=== PATIENT | male | born 1940 | race Caucasian/White ===

== ENCOUNTER 2016-11-01 09:00 | Emergency (ER) | payer MEDICARE, OTHER ==
[~2016-11-01] VITALS: Ht 185.4 cm; Wt 94.3 kg
--- NOTE | 2016-11-01 09:48 | ED.ADGEN ---
Adult General Chief Complaint Chief Complaint: MECHANICAL FALL HPI HPI Patient is a 76 year old man, with a history of atrial flutter, on Pradaxa, who presents to the emergency department with complaints of right-sided shoulder pain right knee pain, contusion to the right side of his head after a fall yesterday. Patient states that he tripped on a curb while exiting a restaurant. Denies any loss of consciousness, any weakness, numbness, tingling, neck pain, vision changes. Complaining of soreness and swelling in his right islam, also of soreness and swelling in the right knee, and pain in the right chest and right shoulder, but is worsened with deep inspiration. Denies any shortness of breath, any nausea or vomiting, any bleeding, any pain with urination, any back pain, any abdominal pain, any other injuries. He states that he used his daily Celebrex yesterday along with acetaminophen, last dose of medication was around 10:00 last night. Review of Systems Review of Systems Constitutional: Denies fever or chills. [] Eyes: Denies change in visual acuity. [] HENT: Denies nasal congestion or sore throat. [] Respiratory: Denies cough or shortness of breath. [] Cardiovascular: Right-sided rib and chest pain with deep inspiration, no edema. GI: Denies abdominal pain, nausea, vomiting, bloody stools or diarrhea. [] : Denies dysuria. [] Musculoskeletal: Right-sided rib and shoulder pain, worse with deep inspiration with motion, right knee pain. Integument: Denies rash. [] Neurologic: Denies headache, focal weakness or sensory changes. [] Endocrine: Denies polyuria or polydipsia. [] Lymphatic: Denies swollen glands. [] Psychiatric: Denies depression or anxiety. [] Current Medications Current Medications Current Medications Medications (Trade) Dose Ordered Sig/Maria Del Rosario Start Time Stop Time Status Last Admin Dose Admin Cyclobenzaprine HCl (Flexeril) 5 mg 1X ONCE 11/01/16 11:15 11/01/16 11:16 DC Lidocaine (Lidoderm) 1 patch 1X ONCE 11/01/16 11:15 11/01/16 11:16 DC 11/01/16 11:01 1 PATCH Allergies Allergies Allergies Coded Allergies Type Severity Reaction Last Updated Verified No Known Drug Allergies 7/22/17 No Physical Exam Physical Exam Constitutional: Well developed, well nourished, no acute distress, non-toxic appearance. [] HENT: Normocephalic, atraumatic, bilateral external ears normal, oropharynx moist, no oral exudates, nose normal. [] Eyes: PERRLA, EOMI, conjunctiva normal, no discharge. [] Neck: Normal range of motion, no tenderness, supple, no stridor. [] Cardiovascular:Heart rate regular rhythm, no murmur, S1, S2, rubs or gallops. [] Lungs & Thorax: Bilateral breath sounds clear to auscultation, no wheezing, rhonchi, rales. Patient with mild initial patient on the chest wall in the right , in the rib 5 rib 7, but no crepitus, no bony point tenderness identified, patient states the pain is more with inspiration than with my palpation. [] Abdomen: Bowel sounds normal, soft, no tenderness, no rebound, rigidity, no guarding, no masses, no pulsatile masses. [] Skin: Warm, dry, no erythema, no rash. [] Back: No midline or paraspinal tenderness, no CVA tenderness. [] Extremities: Patient with tenderness all patient across the anterior portion of the humerus, although he has full range of motion, states he has most pain with elevation in full extension. Patient noted to have abrasions on bilateral knees , with an area of ecchymosis distal to the left patella, across the left anterior portion of the tibia, patient with well-healed surgical incision, with full range of motion, with some crepitus, status post total knee arthroplasty, no cyanosis, no clubbing, ROM intact, no edema. [] Neurologic: Alert and oriented X 3, normal motor function, normal sensory function, no focal deficits noted. [] Psychologic: Affect normal, judgement normal, mood normal. [] Current Patient Data Vital Signs Vital Signs Date Time Temp Pulse Resp B/P (MAP) Pulse Ox O2 Delivery O2 Flow Rate FiO2 11/01/16 09:20 98.3 77 18 155/78 (103) 99 Room Air 98.3 EKG EKG Not indicated [] Radiology/Procedures Radiology/Procedures [][facility] [address] [place] [address] IMAGING REPORT Signed PATIENT: JAKOB KEARNS ACCOUNT: [id number] : 1940 LOCATION: ER AGE: 76 SEX: M EXAM STATUS: PRE ER ORD. PHYSICIAN: PAUL DIAZ DO REASON: fall on Pradaxa/closed head injury PROCEDURE: CT HEAD AND CERVICAL SPINE WO Indication fall. Closed head injury. Neck pain. Noncontrast images of the head were obtained. Images of the cervical spine were reformatted in the coronal and sagittal planes. No prior imaging of the head is available. CT head: Findings. The calvarium appears unremarkable. The visualized paranasal sinuses appear unremarkable. There is no subdural or epidural hematoma. There is no mass or midline shift. No acute intracranial finding is not seen. CT cervical spine: Findings. The lung apices are clear. A significant soft tissue finding is not seen. Review of axial images demonstrates some degenerative changes. These are best demonstrated on the sagittal reformatted images. There is slight disc space narrowing at C6-7. An acute finding is not seen on the axial or reformatted images. IMPRESSION: Mild spondylitic changes in the cervical spine. No acute finding seen. No acute intracranial findings PQRS Compliance Statement: One or more of the following individualized dose reduction techniques were utilized for this examination: 1. Automated exposure control 2. Adjustment of the mA and/or kV according to patient size 3. Use of iterative reconstruction technique DICTATED and SIGNED BY: LIZETH BARKER MD DATE: 11/01/16953 CC: NOAH TEJADA; PAUL DIAZ DO ~ [facility] [address] [place] [address] IMAGING REPORT Signed PATIENT: JAKOB KEARNS ACCOUNT: [id number] : 1940 LOCATION: ER AGE: 76 SEX: M EXAM STATUS: REG ER ORD. PHYSICIAN: PAUL DIAZ DO REASON: fall/pain PROCEDURE: KNEE LEFT 4V Indication fall one day earlier. Pain. AP oblique and lateral views of the left knee were obtained as well as a sunrise view. There is a total knee replacement. No fracture or acute bony finding is seen. Some soft tissue calcification above the patella is noted. IMPRESSION: No acute bony finding DICTATED and SIGNED BY: LIZETH BARKER MD DATE: 11/01/16 1049 CC: NOAH TEJADA; PAUL DIAZ DO ~ [place] [address] IMAGING REPORT Signed PATIENT: JAKOB KEARNS ACCOUNT: [id number] : 1940 LOCATION: ER AGE: 76 SEX: M EXAM STATUS: REG ER ORD. PHYSICIAN: PAUL DIAZ DO REASON: fall/pain PROCEDURE: RIBS RIGHT AND PA CHEST Indication traumatic right rib pain associated with a fall. A single view of the chest was obtained as well as films targeted to right ribs. The chest is compared to an examination 01/13/2013. The heart and pulmonary vessels appear normal. The lungs are clear. There is no pleural fluid or pneumothorax. An acute finding in the chest is not seen. A significant change compared to the prior exam is not seen. Films targeted to right ribs appear unremarkable. IMPRESSION: No acute finding seen in the chest. Unremarkable plain films of right ribs DICTATED and SIGNED BY: LIZETH BARKER MD DATE: 11/01/16 1111 CC: NOAH TEJADA; PAUL DIAZ DO ~ Impressions: [place] [id number] IMAGING REPORT Signed PATIENT: JAKOB KEARNS ACCOUNT: [id number] : 1940 LOCATION: ER AGE: 76 SEX: M EXAM STATUS: REG ER ORD. PHYSICIAN: PAUL DIAZ DO REASON: fall/pain PROCEDURE: RIBS RIGHT AND PA CHEST Indication traumatic right rib pain associated with a fall. A single view of the chest was obtained as well as films targeted to right ribs. The chest is compared to an examination 01/13/2013. The heart and pulmonary vessels appear normal. The lungs are clear. There is no pleural fluid or pneumothorax. An acute finding in the chest is not seen. A significant change compared to the prior exam is not seen. Films targeted to right ribs appear unremarkable. IMPRESSION: No acute finding seen in the chest. Unremarkable plain films of right ribs DICTATED and SIGNED BY: LIZETH BARKER MD DATE: 11/01/16 1111 CC: NOAH TEJADA; PAUL DIAZ DO ~ [facility] [address] [place] [address] IMAGING REPORT Signed PATIENT: JAKOB KEARNS ACCOUNT: [id number] : 1940 LOCATION: ER AGE: 76 SEX: M EXAM STATUS: REG ER ORD. PHYSICIAN: PAUL DIAZ DO REASON: fall/pain PROCEDURE: SHOULDER 2+V RIGHT Indication traumatic right shoulder pain after a fall one day earlier. Internally and external rotated views of the right shoulder as well as a Y view were obtained. There is some slight degenerative change about the shoulder. No fracture or acute bony finding is apparent. IMPRESSION: No acute bony finding DICTATED and SIGNED BY: LIZETH BARKER MD DATE: 11/01/16 1108 CC: NOAH TEJADA; PAUL DIAZ DO ~ Course & Med Decision Making Course & Med Decision Making Pertinent Labs and Imaging studies reviewed. (See chart for details) Patient well-appearing, neurologically intact. After discussion at bedside, due to use of Pradaxa, we'll proceed with imaging of the head and neck, due to fall with contusion and also imaging of the left knee, right ribs and right shoulder. Imaging does not reveal any evidence of concerning findings, patient has now had Lidoderm patch placed on ribs, has received 5 of cyclobenzaprine in the ED, states he is feeling better at this time. Patient also given incentive from a tree with instructions in the ED, examination reveals contusion, no evidence of underlying lung or bony injury. Patient relieved with these findings , is ambulating and difficulty in the ED. Was given detailed instructions and precautions, with which she and the patient's at bedside voiced understanding and agreement. Patient discharged from the ED with plan to follow- up with PCP, and to return to the ED for concerning symptoms as discussed. Dragon Disclaimer Dragon Disclaimer This electronic medical record was generated, in whole or in part, using a voice recognition dictation system. Departure Impression: Primary Impression: Contusion of rib on right side Additional Impression: Closed head injury Disposition: HOME, SELF-CARE Condition: IMPROVED Scripts Lidocaine (Lidocaine) 1 Each Adh..patch 1 EACH TP DAILY Y for PAIN, #5 PATCH Prov: PAUL DIAZ DO 11/01/16 Cyclobenzaprine Hcl (CYCLOBENZAPRINE HCL) 5 Mg Tablet 1 TAB PO TID Y for PAIN, #12 TAB Prov: PAUL DIAZ DO 11/01/16 Problem Qualifiers PAUL DIAZ DO Nov 01, 2016 09:48
--- NOTE | 2016-11-01 10:03 | RAD ---
Indication fall. Closed head injury. Neck pain. Noncontrast images of the head were obtained. Images of the cervical spine were reformatted in the coronal and sagittal planes. No prior imaging of the head is available. CT head: Findings. The calvarium appears unremarkable. The visualized paranasal sinuses appear unremarkable. There is no subdural or epidural hematoma. There is no mass or midline shift. No acute intracranial finding is not seen. CT cervical spine: Findings. The lung apices are clear. A significant soft tissue finding is not seen. Review of axial images demonstrates some degenerative changes. These are best demonstrated on the sagittal reformatted images. There is slight disc space narrowing at C6-7. An acute finding is not seen on the axial or reformatted images. IMPRESSION: Mild spondylitic changes in the cervical spine. No acute finding seen. No acute intracranial findings PQRS Compliance Statement: One or more of the following individualized dose reduction techniques were utilized for this examination: 1. Automated exposure control 2. Adjustment of the mA and/or kV according to patient size 3. Use of iterative reconstruction technique
[2016-11-01] MEDS ORDERED: levoxyl (10:43)
[2016-11-01] MEDS ORDERED: CELE200C PO (10:43)
[2016-11-01] MEDS ORDERED: METO25TA9 PO (10:46)
[2016-11-01] MEDS ORDERED: DABI150C PO (10:46)
[2016-11-01] MEDS ORDERED: TAMS0.4C97 PO (10:47)
[2016-11-01] MEDS ORDERED: ATOR10TA60 PO (10:48)
[2016-11-01] MEDS ORDERED: GABA-586 PO (10:48)
[2016-11-01] MEDS ORDERED: OMEG1CAP38 PO (10:49)
[2016-11-01] MEDS ORDERED: ZINC50TA33 PO (10:49)
[2016-11-01] MEDS ORDERED: CALC600T4 PO (10:50)
[2016-11-01] MEDS ORDERED: VITA150T PO (10:51)
[2016-11-01] MEDS ORDERED: GLUC1CAP48 PO (10:53)
[2016-11-01] MEDS ORDERED: ASPI-630 PO (10:54)
[2016-11-01] MEDS ORDERED: Tylenol Arthritis (10:54)
--- NOTE | 2016-11-01 10:54 | RAD ---
Indication fall one day earlier. Pain. AP oblique and lateral views of the left knee were obtained as well as a sunrise view. There is a total knee replacement. No fracture or acute bony finding is seen. Some soft tissue calcification above the patella is noted. IMPRESSION: No acute bony finding
[2016-11-01] MEDS ORDERED: NAPR220C4 PO (10:55)
--- NOTE | 2016-11-01 11:13 | RAD ---
Indication traumatic right shoulder pain after a fall one day earlier. Internally and external rotated views of the right shoulder as well as a Y view were obtained. There is some slight degenerative change about the shoulder. No fracture or acute bony finding is apparent. IMPRESSION: No acute bony finding
[2016-11-01] MEDS ORDERED: CYCLOBENZAPRINE 10 MG TABLET. PO ONE (11:15)
[2016-11-01] MEDS ORDERED: LIDOCAINE (700MG/PATCH) PATCH. TD ONE (11:15)
--- NOTE | 2016-11-01 11:18 | RAD ---
Indication traumatic right rib pain associated with a fall. A single view of the chest was obtained as well as films targeted to right ribs. The chest is compared to an examination 01/13/2013. The heart and pulmonary vessels appear normal. The lungs are clear. There is no pleural fluid or pneumothorax. An acute finding in the chest is not seen. A significant change compared to the prior exam is not seen. Films targeted to right ribs appear unremarkable. IMPRESSION: No acute finding seen in the chest. Unremarkable plain films of right ribs
[2016-11-01] MEDS ORDERED: CYCL5TAB PO (11:30)
[2016-11-01] MEDS ORDERED: LIDO700A39 TP (11:30)
[2016-11-01 11:45] VITALS: BP 125/76
== END 2016-11-01 11:55 | disposition home or self-care (01) ==
LOC: ER 09:00
DX: S20.211A Contusion of right front wall of thorax, initial encounter (principal); S09.90XA Unspecified injury of head, initial encounter; M25.511 Pain in right shoulder; M25.562 Pain in left knee; I48.92 Unspecified atrial flutter; Z96.659 Presence of unspecified artificial knee joint; W01.0XXA Fall on same level from slipping, tripping and stumbling without subsequent striking against object, initial encounter; Y93.89 Activity, other specified; Y92.89 Other specified places as the place of occurrence of the external cause; Y99.8 Other external cause status
CPT/HCPCS: 70450; 71101; 72125; 73030; 73564; 99284-25

== ENCOUNTER → 2018-11-02 | Outpatient (CLI) | payer MEDICARE, OTHER ==
[~2018-11-02] MED LIST: ASPI-630 PO; ATOR10TA60 PO; CALC600T4 PO; CELE200C PO; CYCL5TAB PO; DABI150C PO; GABA300C18 PO; GLUC1CAP48 PO; LIDO700A21 TP; METO-239 PO; NAPR220C4 PO; OMEG1CAP38 PO; TAMS0.4C97 PO; Tylenol Arthritis; VITA150T PO; ZINC50TA33 PO; levoxyl
--- NOTE | 2018-11-02 13:19 | RAD ---
LUMBAR SPINE WO CONTRAST Date: 11/02/2018 11:15 AM Indication: Low back pain with bilateral lower extremity radiculopathy Comparison: None. Technique: Multi-planar multi-weighted magnetic resonance imaging of the lumbar spine was performed without intravenous contrast using the standard lumbar spine protocol. FINDINGS: The lumbar spine is normally aligned. No acute fracture. Mild multilevel degenerative disc desiccation and disc height loss. No marrow replacing process to suggest malignancy. The conus terminates at a normal level. No abnormal signal is seen within the visualized distal spinal cord. No clumping of intrathecal nerve roots. No soft tissue abnormality in the visualized abdomen or pelvis. T12-L1: No disc bulge. No facet arthropathy. No significant spinal stenosis or neural foraminal narrowing. L1-L2: No disc bulge. No facet arthropathy. No significant spinal stenosis or neural foraminal narrowing. L2-L3: No disc bulge. No facet arthropathy. No significant spinal stenosis or neural foraminal narrowing. L3-L4: Disc bulge. Mild right and moderate left facet arthropathy. Left ligamentum flavum thickening. Mild spinal stenosis. Mild right and moderate left lateral recess narrowing. Moderate bilateral neural foraminal narrowing. L4-L5: Disc bulge. Severe facet arthropathy and ligamentum flavum thickening with bulky osteophytes which extend into the spinal canal. Severe spinal stenosis with compression of the nerve roots of the cauda equina. Mild left and moderate right neural foraminal narrowing. L5-S1: Disc bulge. Mild facet arthropathy. No significant spinal stenosis. Moderate bilateral neural foraminal narrowing. IMPRESSION: Severe spinal stenosis at L4-5 with compression of the nerve roots of the cauda equina, primarily secondary to severe facet arthropathy and ligamentum flavum thickening with bulky osteophytes. Electronically signed by: Bala Hussein MD (11/02/2018 1:17 PM) [id number]
== END | disposition home or self-care (01) ==
LOC: MRI 12:17
PROVIDERS: ATTEND Family Medicine
DX: M48.07 Spinal stenosis, lumbosacral region (principal); M54.16 Radiculopathy, lumbar region; M12.88 Other specific arthropathies, not elsewhere classified, other specified site; M25.78 Osteophyte, vertebrae
CPT/HCPCS: 72148